=== PATIENT | female | born 1945 | race Caucasian/White ===

== ENCOUNTER 2025-01-13 16:25 | Emergency (ER) | payer MEDICARE, BC ==
[~2025-01-13] VITALS: Ht 157.5 cm; Wt 56.8 kg
[~2025-01-13 16:25] MED LIST: HCTZ25T PO
--- NOTE | 2025-01-13 16:40 | Physician Documentation ---
History of Present Illness ~ Chief Complaint: Ankle pain Stated Complaint: ANKLE PAIN Time Seen by MD: 17:44 OK to notify your PCP?: Yes Primary Medical Doctor: SHANON OROZCO Source: patient Mode of Arrival: POV Exam Limitations: no limitations HPI 79-year-old female sent in from urgent care for bilateral lower leg fractures with splints in place. She is having uncontrolled pain at home and has no way to get around her house as she does not have a wheelchair prescribed. She is requesting assistance with these 2 issues. Addition to splints were placed however patient has been forced to hobble around in her pain has increased over the last day. Was not prescribed any pain medication Day of Onset: Jan 13, 2025 Medication Reconciliation Allergies: Coded Allergies: codeine (Verified Allergy, Unknown, 01/13/25) Scheduled Hydrochlorothiazide* (Hctz*), 25 MG PO DAILY, (Reported) Review of Systems All Other Systems at this time: Reviewed and Negative Physical Exam Vital Signs: RN Vital Signs have been reviewed: Yes, Temperature: 99.4, Source: Temporal, Heart Rate: 94, Respiratory Rate: 15, BP: 118/56, Pulse Oximetry: 99, Weight: 56.820 Pulse Oximetry Reflects: adequate oxygenation Physical Exam General: Alert, no distress. Extremities: Bilateral splints to lower extremities. / left ankle notably swollen with gross ecchymosis. Point tenderness inferior malleolus Neurologic: Oriented x4. Psychiatric: Normal mood and affect. Skin: Normal color, warm and dry. Progress Results/Orders Results/Orders Orders - LUIS SCHMID [employer]LIND[employer] LOADER Ankle, Complete(3vw Min) (01/13/25 18:05) Ankle, Complete(3vw Min) (01/13/25 18:10) Ortho Orders (01/13/25 18:50) Completed Orders - LUIS SCHMID [employer]IND[employer] LOADER Ankle, Complete(3vw Min) (01/13/25 18:05) Ankle, Complete(3vw Min) (01/13/25 18:10) Hydrocodone/Apap 10/325 (Hartley 10/325mg (01/13/25 18:50) Ondansetron Disint. Tablet (Zofran Odt T (01/13/25 18:50) Vital Signs 01/13/25 16:28 Temp 99.4 Pulse 94 Resp 15 B/P (MAP) 118/56 Pulse Ox 99 Medical Decision Making Findings This patient requires a Jorge L splint which was not initially placed on her right leg she clearly has a mildly displaced fracture on the distal fibula. In addition I do not appreciate any signs of acute fracture on the left ankle. However she clearly had a [id number] sprain. We will plate place her in a boot on that side. Patient family said they rented her a wheelchair for use while she heals Departure Disposition: 01 HOME / SELF CARE / HOMELESS Impression: Primary Impression: Sprain of ankle Additional Impression: Fracture of bone Condition: Stable Discharge Instructions: Ankle Sprain Additional Instructions: Provided the contact info for Dr. Rebecca keller orthopedic surgeon. I notified him that he will be coming to his office. He graciously accepted you into his care. Referrals: NO PRIMARY CARE PROVIDER (PCP) REBECCA KELLER MD Prescriptions ONDANSETRON ODT 4mg tablet (ONDANSETRON ODT) 4 Mg Tab.rapdis 1 TAB PO Q6H PRN PRN for nausea/vomiting for 4 Days, #16 TAB 0 Refills Prov: LUIS SCHMID NP 01/13/25 Hydrocodone Bit/Acetaminophen 5/325 MG (Hartley 5/325 MG) 5 Mg/325 Mg Tablet 1 TAB PO Q6H PRN for pain, #14 TAB Prov: LUIS SCHMID NP 01/13/25 Additional Comment Medical Screen Exam This patient recieved a medical screening examination. After reviewing the individual's medical complaints with presenting symptoms and performing an appropriate physical examination, it was determined that no immediate life- threatening emergency medical condition is present. This individual is also not a women having contractions. Signature Scribe Signature: t Attestation: Scribed for Luis Schmid [employer] by Luis Luz NP . 01/13/25 18:52 LEIF UMAÑA Jan 13, 2025 16:40 LUIS SCHMID NP Jan 13, 2025 17:59
--- NOTE | 2025-01-13 18:44 | RADIOLOGY REPORT ---
CLINICAL INDICATION: FALL BILATERAL TECHNIQUE: 3 radiographic views of the left ankle were obtained. Comparison: None FINDINGS/IMPRESSION: There is no evidence of acute fracture or dislocation. The visualized joint space is well maintained. The alignment is anatomical. There is no radiopaque foreign body. Overlying cast material limits evaluation of the bony and soft t issue fine details. If symptoms persist, consider repeat imaging in 7-[address] for further evaluation.
[2025-01-13] MEDS ORDERED: ONDA-243 PO (18:57)
[2025-01-13] MEDS ORDERED: HYDR-3965 PO (18:57)
--- NOTE | 2025-01-13 19:13 | RADIOLOGY REPORT ---
EXAMINATIONS: 3 views of the right ankle CLINICAL HISTORY: fall bilateral COMPARISON: None Findings and impression: Generalized ankle soft tissue swelling. Obliquely oriented mildly displaced fracture of the distal fibula at the level of the syndesmosis. Mildly displaced avulsion fracture of the medial malleolus. Questionable cortical irregularity involving the posterior malleolus which may be projectional.
[2025-01-13] MEDS: HYDROcodone/acetaminophen 10/325mg tab PO ONE (19:20)
[2025-01-13] MEDS: ondansetron 4mg rapidly disintigrating tab PO ONE (19:20)
[2025-01-13 20:23] VITALS: BP 119/55; PULSE 86; RESP 16; TEMP 98.6; O2SAT 99
== END 2025-01-13 20:29 | disposition home or self-care (01) ==
LOC: ER 16:27
DX: S82.491A Other fracture of shaft of right fibula, initial encounter for closed fracture (principal); S90.02XA Contusion of left ankle, initial encounter; S90.01XA Contusion of right ankle, initial encounter; Z88.5 Allergy status to narcotic agent; Z79.899 Other long term (current) drug therapy; X58.XXXA Exposure to other specified factors, initial encounter; Y93.89 Activity, other specified; Y92.89 Other specified places as the place of occurrence of the external cause; Y99.8 Other external cause status
CPT/HCPCS: 29515; 73610; 99283; A6449; L4360